=== PATIENT | female | born 1960 | race African-American/Black ===

== ENCOUNTER 2023-07-07 20:16 | Emergency (ER) | payer BC, MEDICAID ==
[~2023-07-07] VITALS: Ht 162.6 cm; Wt 75.7 kg
[2023-07-07 20:37] VITALS: BP 143/77; PULSE 100; RESP 18; TEMP 97.4; O2SAT 99
[2023-07-07 21:35] VITALS: O2SAT 98
[2023-07-07] MEDS ORDERED: KETOROLAC 60 MG/2 ML VIAL IM ONE (21:45)
== END 2023-07-08 01:09 | disposition home or self-care (01) ==
LOC: MED 20:16
DX: S13.4XXA Sprain of ligaments of cervical spine, initial encounter (principal); R05.9 Cough, unspecified; M25.511 Pain in right shoulder; Z79.899 Other long term (current) drug therapy; V49.88XA Car occupant (driver) (passenger) injured in other specified transport accidents, initial encounter; Y93.89 Activity, other specified; Y92.89 Other specified places as the place of occurrence of the external cause; Y99.8 Other external cause status
CPT/HCPCS: 71045; 72050; 81002; 96372; 99284; J1885